=== PATIENT | male | born 1985 | race Caucasian/White ===

== ENCOUNTER 2022-04-05 19:10 | Emergency (ER) | payer OTHER ==
[~2022-04-05] VITALS: Ht 170.1 cm; Wt 74.8 kg
[2022-04-05] MEDS ORDERED: METHOCARBAMOL500 M1 PO (22:04)
[2022-04-05] MEDS ORDERED: PREDNISONE20 M1 PO (22:04)
== END 2022-04-05 22:21 | disposition home or self-care (01) ==
LOC: ED 19:10
DX: S33.5XXA Sprain of ligaments of lumbar spine, initial encounter (principal); X50.1XXA Overexertion from prolonged static or awkward postures, initial encounter; Y93.89 Activity, other specified; Y92.89 Other specified places as the place of occurrence of the external cause; Y99.8 Other external cause status